=== PATIENT | female | born 1995 | race Caucasian/White ===

== ENCOUNTER 2024-11-19 19:04 | Inpatient (IN) | payer OTHER ==
[~2024-11-19] VITALS: Ht 162.6 cm; Wt 118.3 kg
[2024-11-19] MEDS: CYCLOBENZAPRINE 10 MG TABLET PO ONE (21:03)
[2024-11-19] MEDS: KETOROLAC 30 MG/ML 1 ML VIAL IV ONE (21:03)
[2024-11-19] MEDS: PERCOCET 5MG/325MG TAB PO ONE (21:58)
[2024-11-19] MEDS: LIDOCAINE 5% PATCH TD ONE (23:29)
[2024-11-19] MEDS: MORPHINE 4 MG/ML 1 ML VIAL IV ONE (23:30)
[2024-11-20] MEDS ORDERED: ACET-897 PO (02:06)
[2024-11-20] MEDS ORDERED: NAPR220C14 PO (02:06)
[2024-11-20] MEDS ORDERED: HOME MED LIST COMPLETE! XX SCH (02:10)
[2024-11-20] MEDS: MORPHINE 4 MG/ML 1 ML VIAL IV PRN ×2 (04:22→11:17)
[2024-11-20] MEDS ORDERED: MORPHINE 4 MG/ML 1 ML VIAL IV PRN (16:30)
[2024-11-20] MEDS ORDERED: PERCOCET 5MG/325MG TAB PO PRN (16:30)
[2024-11-20 16:48] LABS: BASO # 0.0 10^3/uL (0.0-0.2); BASO % 0.3 % (0.0-1.0); EOS # 0.1 10^3/uL (0.0-0.5); EOS % 1.5 % (0.0-3.0); LYMPH # 1.9 10^3/uL (1.5-5.0); LYMPH % 21.0 % (24.0-44.0); MONO # 0.5 10^3/uL (0.0-0.8); MONO % 5.1 % (2.0-8.0); NEUTROPHILS # 6.4 10^3/uL (1.5-8.5); NEUTROPHILS % 71.9 % (36.0-66.0); PLATELET COUNT, AUTOMATED 318 10^3/uL (150-450)
[2024-11-20 16:54] LABS: ERYTHROCYTE SEDIMENTATION RATE 20 mm/hr (0-20)
[2024-11-20] MEDS: NS (Normal Saline) 0.9% 1,000 ML IV ONE (16:55)
[2024-11-20] MEDS: PERCOCET 5MG/325MG TAB PO ONE (17:00)
[2024-11-20] MEDS ORDERED: NALOXONE INJ 0.4 MG/1 ML VIAL IV PRN (17:05)
[2024-11-20 17:10] LABS: ALT/SGPT 26 U/L (7.0-40); AST/SGOT 20 U/L (<34); C REACTIVE PROTEIN QUANTITATIV 0.85 MG/DL (<1.0); CALCIUM LEVEL 9.4 MG/DL (8.5-10.1); CARBON DIOXIDE LEVEL 25 MMOL/L (20-31); CHLORIDE LEVEL 106 MMOL/L (98-107); CREATININE FOR GFR 0.85 MG/DL (0.55-1.30); GLOMERULAR FILTRATION RATE > 90.0 (>60); POTASSIUM SERUM 4.3 MMOL/L (3.5-5.1); SODIUM LEVEL 141 MMOL/L (136-145)
[2024-11-20 17:11] LABS: CHOLESTEROL LEVEL 182.0 MG/DL (<200); CHOLESTEROL RISK RATIO 3.06 (<5); LDL CHOLESTEROL 104.1 MG/DL (<100); MAGNESIUM LEVEL 2.1 MG/DL (1.8-2.4); NON-HDL-C 122.7 MG/DL; TRIGLYCERIDES LEVEL 93.0 MG/DL (<150)
[2024-11-20 17:14] VITALS: BP 140/84; TEMP 98.4; O2SAT 100
[2024-11-20 17:20] LABS: ESTIMATED AVERAGE GLUCOSE 100.0 MG/DL (60-110)
[2024-11-20] MEDS: ACETAMINOPHEN 500 MG TAB PO SCH (17:59)
[2024-11-20] MEDS: KETOROLAC 30 MG/ML 1 ML VIAL IV SCH (18:04)
[2024-11-20] MEDS: NS (Normal Saline) 0.9% 1,000 ML IV SCH (18:05)
[2024-11-20 20:04] VITALS: BP 134/76; TEMP 98.5; O2SAT 97
[2024-11-20] MEDS: DICLOFENAC EPOLAMINE 1.3% PATCH TOP SCH (20:04)
[2024-11-20] MEDS: HEPARIN SOD 5000 UNITS/ML 1 ML VIAL/SYRINGE SQ SCH (20:04)
[2024-11-20] MEDS: PERCOCET 5MG/325MG TAB PO PRN (23:24)
[2024-11-21 03:30] VITALS: BP 132/81; TEMP 97.8; O2SAT 97
[2024-11-21] MEDS ORDERED: PERCOCET 5MG/325MG TAB PO ONE (07:35)
[2024-11-21] MEDS ORDERED: PERC5TAB12 PO (07:51)
[2024-11-21] MEDS ORDERED: METH-1165 PO (07:51)
[2024-11-21 09:54] VITALS: BP 130/86; TEMP 99.1; O2SAT 100
[2024-11-21] MEDS: MORPHINE 2 MG/ML 1 ML VIAL IV ONE (11:23)
[2024-11-21 12:28] VITALS: BP 128/84; TEMP 98.8; O2SAT 99
[2024-11-21 18:00] VITALS: BP 141/88; TEMP 97.9; O2SAT 98
[2024-11-21 21:15] LABS: KETONE, URINE AUTO RFX NEGATIVE (NEGATIVE); MUCUS, URINE RFX SMALL (NEGATIVE); NITRITE, URINE AUTO RFX NEGATIVE (NEGATIVE); RBC, URINE AUTO RFX 2 /HPF (0-3); SQUAM EPITHELIAL CELL UR AURFX 10 /HPF (0-6)
[2024-11-21 21:16] LABS: LEUKOCYTE ESTERASE UR AUTO RFX 3+ (NEGATIVE); WBC, URINE AUTO RFX 17 /HPF (0-3)
[2024-11-21 22:04] VITALS: BP 138/94; TEMP 97.7; O2SAT 97
[2024-11-22 06:30] VITALS: BP 137/91; TEMP 97.7; O2SAT 98
[2024-11-22] MEDS: PERCOCET 5MG/325MG TAB PO ONE (08:05)
[2024-11-22] MEDS: PERCOCET 5MG/325MG TAB PO SCH (11:09)
[2024-11-22 15:00] VITALS: BP 147/93; TEMP 97.9; O2SAT 97
[2024-11-22 21:34] VITALS: BP 143/98; TEMP 97.7; O2SAT 100
[2024-11-23 05:59] VITALS: BP 165/109; TEMP 98.1; O2SAT 96
[2024-11-23 07:13] VITALS: BP 129/90; O2SAT 97
[2024-11-23 14:00] VITALS: BP 138/91; TEMP 98.1
[2024-11-23] MEDS: SENNOSIDES/DOCUSATE SODIUM 8.6 MG/50MG TAB PO SCH (14:59)
[2024-11-23] MEDS: MIRALAX *UNIT DOSE* 17 GM PACKET PO SCH (14:59)
[2024-11-23 20:34] VITALS: BP 153/118; TEMP 97; O2SAT 100
[2024-11-23] MEDS: GABAPENTIN 300 MG CAP PO SCH (20:38)
[2024-11-23 20:51] VITALS: BP 134/83
[2024-11-23] MEDS: predniSONE 20 MG TAB PO SCH (22:08)
[2024-11-23] MEDS ORDERED: ALBUTEROL 90 MCG/ACT 8 GM HFA INHALER INH PRN (22:15)
[2024-11-24 06:48] VITALS: BP 155/101; TEMP 97.7; O2SAT 95
[2024-11-24 14:00] VITALS: BP 148/86; TEMP 97.9
[2024-11-24] MEDS: ACETAMINOPHEN 500 MG TAB PO PRN (15:21)
[2024-11-24] MEDS: GABAPENTIN 300 MG CAP PO SCH (15:23)
[2024-11-24 20:27] VITALS: BP 136/92; TEMP 98.2; O2SAT 97
[2024-11-24] MEDS: SENNOSIDES/DOCUSATE SODIUM 8.6 MG/50MG TAB PO SCH (20:31)
[2024-11-25 04:00] VITALS: BP 138/91; TEMP 97.5; O2SAT 97
[2024-11-25] MEDS: MIRALAX *UNIT DOSE* 17 GM PACKET PO SCH (10:15)
[2024-11-25 14:00] VITALS: BP 138/101; TEMP 97.9; O2SAT 99
[2024-11-25 14:47] VITALS: BP 116/80
[2024-11-25 19:50] VITALS: BP 125/86; TEMP 97.9; O2SAT 97
[2024-11-26 05:06] VITALS: BP 127/87; TEMP 98.4; O2SAT 97
[2024-11-26 14:00] VITALS: BP 125/88; TEMP 98.1; O2SAT 98
[2024-11-26 19:32] VITALS: BP 127/87; TEMP 98.1; O2SAT 98
[2024-11-27 05:30] VITALS: BP 115/68; TEMP 98.1; O2SAT 97
[2024-11-27 14:00] VITALS: BP 125/89; TEMP 98.1; O2SAT 98
[2024-11-27 20:04] VITALS: BP 127/89; TEMP 98.1; O2SAT 97
[2024-11-28 05:09] VITALS: BP 127/90; TEMP 97.5; O2SAT 95
[2024-11-28 14:00] VITALS: BP 126/83; TEMP 98.4; O2SAT 98
[2024-11-28] MEDS: GABAPENTIN 400 MG CAP PO SCH (15:54)
[2024-11-28] MEDS: MELOXICAM 7.5 MG TAB PO SCH (15:54)
[2024-11-28 22:08] VITALS: BP 126/84; TEMP 98.2; O2SAT 98
[2024-11-29 05:35] VITALS: BP 122/83; TEMP 97.9; O2SAT 99
[2024-11-29 14:00] VITALS: BP 117/82; TEMP 98; O2SAT 98
[2024-11-29 21:34] VITALS: BP 127/84; TEMP 97; O2SAT 97
[2024-11-30 05:54] VITALS: BP 107/69; TEMP 97.3; O2SAT 96
[2024-11-30 07:26] LABS: PLATELET COUNT, AUTOMATED 320 10^3/uL (150-450)
[2024-11-30 08:01] LABS: CALCIUM LEVEL 9.1 MG/DL (8.5-10.1); CARBON DIOXIDE LEVEL 28 MMOL/L (20-31); CHLORIDE LEVEL 106 MMOL/L (98-107); CREATININE FOR GFR 0.72 MG/DL (0.55-1.30); GLOMERULAR FILTRATION RATE > 90.0 (>60); POTASSIUM SERUM 4.7 MMOL/L (3.5-5.1); SODIUM LEVEL 139 MMOL/L (136-145)
[2024-11-30 20:10] VITALS: BP 134/84; TEMP 97.5; O2SAT 96
[2024-12-01 05:10] VITALS: BP 132/83; TEMP 97.5; O2SAT 98
[2024-12-01] MEDS ORDERED: MELO15TA28 PO (11:18)
[2024-12-01] MEDS ORDERED: GABA-284 PO (11:18)
[2024-12-01] MEDS ORDERED: DULO1CAP5 PO (11:18)
[2024-12-01] MEDS ORDERED: OXYC-517 PO (11:24)
[2024-12-01] MEDS ORDERED: METH-1165 PO (11:50)
== END 2024-12-01 12:50 | disposition home or self-care (01) | DRG 347 ==
LOC: M ED 19:04 → M ED INP 19:05 → M MS4PR 11-20 14:46 → OBSVTOIN 11-21 10:51 → M MS5PR 11-21 18:00
PROVIDERS: ADMIT General Practice; ATTEND Internal Medicine Nephrology
DX: M51.16 Intervertebral disc disorders with radiculopathy, lumbar region (principal); Z68.41 Body mass index [BMI] 40.0-44.9, adult; J45.909 Unspecified asthma, uncomplicated; E66.813 Obesity, class 3; M48.061 Spinal stenosis, lumbar region without neurogenic claudication; F17.290 Nicotine dependence, other tobacco product, uncomplicated; M62.830 Muscle spasm of back; M47.27 Other spondylosis with radiculopathy, lumbosacral region; K59.00 Constipation, unspecified